=== PATIENT | female | born 1940 | race Caucasian/White ===

== ENCOUNTER 2017-08-06 09:26 | Outpatient (CLI) | payer MEDICARE ==
[2017-08-06 18:55] LABS: BUN - BLOOD UREA NITROGEN 19 mg/dL (6-20); CALCIUM 9.7 mg/dL (8.5-10.3); CARBON DIOXIDE - CO2 27 mmol/L (21-32); CHLORIDE 102 mmol/L (101-111); CHOL/HDL RATIO 4.5 (<4.4); CHOLESTEROL 219 mg/dL; CREATININE 0.8 mg/dL (0.4-1.0); GFR - MDRD 70 (>89); GLUCOSE 92 mg/dL (70-100); HDL CHOLESTEROL 49 mg/dL; LDL/HDL RATIO 2.7 (<4.4); POTASSIUM 4.3 mmol/L (3.5-5.0); SODIUM 138 mmol/L (135-145); TRIGLYCERIDES 181 mg/dL; VLDL CHOLESTEROL 36 mg/dL
== END 2017-08-06 09:27 | disposition home or self-care (01) ==
LOC: LAB.F 09:26
PROVIDERS: ATTEND Internal Medicine
DX: Z00.00 Encounter for general adult medical examination without abnormal findings (principal); J30.9 Allergic rhinitis, unspecified; E78.5 Hyperlipidemia, unspecified; I10 Essential (primary) hypertension; R73.01 Impaired fasting glucose; M25.562 Pain in left knee; G43.909 Migraine, unspecified, not intractable, without status migrainosus; M85.80 Other specified disorders of bone density and structure, unspecified site; Z12.11 Encounter for screening for malignant neoplasm of colon
CPT/HCPCS: 36415; 80048; 80061

== ENCOUNTER 2017-08-07 10:54 | Outpatient (CLI) | payer MEDICARE ==
--- NOTE | 2017-08-07 14:45 | XRAY Report ---
EXAM: LEFT KNEE RADIOGRAPHY EXAM DATE: 08/07/2017 11:07 AM. CLINICAL HISTORY: PAIN IN LEFT KNEE. COMPARISON: None. TECHNIQUE: 3 views. FINDINGS: Bones: Normal. No fractures or bone lesions. Joints: Osteophyte medial joint space with subchondral sclerosis and joint space narrowing. Chondroca lcinosis. Lateral joint space osteophyte without joint space narrowing. Patellofemoral osteophytes wi th lateral facet narrowing. No effusion. No subluxations. Soft Tissues: Normal. No soft tissue swelling. 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
== END 2017-08-07 10:55 | disposition home or self-care (01) ==
LOC: DI.S 10:54
PROVIDERS: ATTEND Internal Medicine
DX: M17.12 Unilateral primary osteoarthritis, left knee (principal)